=== PATIENT | male | born 1995 | race African-American/Black ===

== ENCOUNTER 2020-10-26 13:48 | Emergency (ER) | payer OTHER ==
[~2020-10-26] VITALS: Ht 182.9 cm; Wt 99.1 kg
[2020-10-26 14:46] LABS: APPEARANCE, URINE CLEAR (CLEAR); BACTERIA, URINE AUTO NEGATIVE (NEGATIVE); BILIRUBIN, URINE AUTO NEGATIVE (NEGATIVE); BLOOD, URINE BLOOD NEGATIVE (NEGATIVE); COLOR, URINE YELLOW (YELLOW); GLUCOSE, URINE (UA) AUTO NEGATIVE (NEGATIVE); KETONE, URINE AUTO NEGATIVE (NEGATIVE); LEUKOCYTE ESTERASE, URINE AUTO NEGATIVE (NEGATIVE); NITRITE, URINE AUTO NEGATIVE (NEGATIVE); PROTEIN, URINE AUTO NEGATIVE (NEGATIVE); RBC, URINE AUTO 0 /HPF (0-3); SPECIFIC GRAVITY URINE AUTO 1.024 (1.002-1.035); SQUAMOUS EPITHELIAL CELL UR AU 0 /HPF (0-6); UROBILINOGEN, URINE AUTO 0.2 mg/dL (0.0-2.0); WBC, URINE AUTO 0 /HPF (0-3)
--- NOTE | 2020-10-26 14:48 | REP ---
INDICATION: elev bp COMPARISON: None. TECHNIQUE: PA/Lateral FINDINGS: Lungs: Clear, no infiltrate. Heart: Normal in size. Mediastinum: Mediastinal silhouette unremarkable. Pleural angles: Unremarkable.. Bones and soft tissues: Unremarkable. IMPRESSION: No acute pulmonary disease. <Electronically signed by Darien Nelson > 10/26/20 [id number]
[2020-10-26 14:57] LABS: BASO % 0.4 % (0.0-1.0); EOS # 0.1 10^3/uL (0.0-0.5); EOS % 1.5 % (0.0-3.0); HEMOGLOBIN 14.7 g/dl (13.5-17.5); LYMPH # 3.7 10^3/uL (1.5-5.0); LYMPH % 51.8 % (24.0-44.0); MEAN CORPUSCULAR HEMOGLOBIN 27.2 pg (27.0-33.0); MEAN CORPUSCULAR VOLUME 85.2 fl (80.0-96.0); MONO # 0.8 10^3/uL (0.0-0.8); MONO % 11.3 % (2.0-8.0); NEUTROPHILS # 2.5 10^3/uL (1.5-8.5); NEUTROPHILS % 34.7 % (36.0-66.0); PLATELET COUNT, AUTOMATED 277 10^3/uL (150-450); WHITE BLOOD COUNT 7.1 10^3/uL (4.0-10.0)
[2020-10-26 15:17] LABS: ALBUMIN 4.4 GM/DL (3.2-5.2); BILIRUBIN,DIRECT 0.1 MG/DL (0.0-0.2); BILIRUBIN,TOTAL 0.5 MG/DL (0.2-1.0); TOTAL PROTEIN 8.6 GM/DL (6.4-8.2)
[2020-10-26 15:23] LABS: FREE T4 0.81 NG/DL (0.76-1.46); THYROID STIMULATING HORMONE 6.8 uIU/ML (0.358-3.740)
[2020-10-26] MEDS ORDERED: TELM1TAB35 PO (15:32)
[2020-10-26 15:45] VITALS: BP 124/64
--- NOTE | 2020-10-26 20:22 | ECGEPIP ---
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
== END 2020-10-26 16:21 | disposition home or self-care (01) ==
LOC: M ED 13:48
DX: I10 Essential (primary) hypertension (principal)

== ENCOUNTER 2021-03-09 09:58 | Emergency (ER) | payer OTHER ==
[~2021-03-09] VITALS: Ht 182.9 cm; Wt 94.8 kg
[~2021-03-09 09:58] MED LIST: TELM1TAB35 PO
[2021-03-09] MEDS ORDERED: CYCL-707 PO (11:52)
[2021-03-09] MEDS ORDERED: NAPR-885 PO (11:52)
[2021-03-09 11:58] VITALS: BP 136/75
== END 2021-03-09 12:00 | disposition home or self-care (01) ==
LOC: M ED 09:58
DX: S39.012A Strain of muscle, fascia and tendon of lower back, initial encounter (principal); X58.XXXA Exposure to other specified factors, initial encounter; Y92.89 Other specified places as the place of occurrence of the external cause; M62.838 Other muscle spasm; I10 Essential (primary) hypertension; Z79.899 Other long term (current) drug therapy

== ENCOUNTER 2022-05-12 07:16 | Emergency (ER) | payer OTHER ==
[~2022-05-12 07:16] MED LIST changes: +CYCL-707 PO; +NAPR-885 PO
[2022-05-12] MEDS ORDERED: AMOX875T2 PO (11:46)
[2022-05-12 11:55] VITALS: BP 139/87
== END 2022-05-12 11:57 | disposition home or self-care (01) ==
LOC: M ED 11:21
DX: H66.001 Acute suppurative otitis media without spontaneous rupture of ear drum, right ear (principal)